=== PATIENT | female | born 1955 | race Caucasian/White ===

== ENCOUNTER → 2016-12-06 | Outpatient (CLI) | payer OTHER | LOC: MC.RAD 08:20 | DX: Z12.31 Encounter for screening mammogram for malignant neoplasm of breast (principal) ==

== ENCOUNTER → 2018-02-15 | Outpatient (CLI) | payer OTHER | LOC: MC.RAD 12-29 11:40 | DX: Z12.31 Encounter for screening mammogram for malignant neoplasm of breast (principal) ==

== ENCOUNTER → 2019-02-20 | Outpatient (CLI) | payer OTHER | LOC: MC.RAD 16:27 | DX: Z12.31 Encounter for screening mammogram for malignant neoplasm of breast (principal) ==

== ENCOUNTER → 2020-02-25 | Outpatient (CLI) | payer BC | LOC: MC.RAD 08:45 | DX: Z12.31 Encounter for screening mammogram for malignant neoplasm of breast (principal) ==

== ENCOUNTER → 2021-02-25 | Outpatient (CLI) | payer MEDICARE, OTHER | LOC: MC.RAD 07:51 | DX: Z12.31 Encounter for screening mammogram for malignant neoplasm of breast (principal) ==

== ENCOUNTER → 2021-04-27 | Outpatient (CLI) | payer MEDICARE, OTHER ==
[~2021-04-27] VITALS: Ht 160 cm; Wt 67.7 kg
[~2021-04-27] MED LIST: CITRACAL-D3 ER1 EACH PO; SYNTHROID0.05 MG/TA PO; SYNTHROID0.088 MG/T PO; VITAMIN D31000 I1 PO; ZOCOR 10MG10 MG PO
[2021-04-27 15:21] VITALS: BP 120/82; PULSE 94; TEMP 98.2
== END ==
LOC: EUO 14:50
DX: M81.0 Age-related osteoporosis without current pathological fracture (principal)
CPT/HCPCS: J0897

== ENCOUNTER 2021-11-05 14:54 | Outpatient (CLI) | payer MEDICARE, OTHER ==
[~2021-11-05] VITALS: Ht 160 cm; Wt 66.0 kg
[2021-11-05 15:30] VITALS: BP 137/84; PULSE 84; TEMP 98.2
== END 2021-11-05 17:05 | disposition home or self-care (01) ==
LOC: EUO 14:54
DX: M81.0 Age-related osteoporosis without current pathological fracture (principal)
CPT/HCPCS: J0897

== ENCOUNTER 2022-05-27 13:50 | Outpatient (CLI) | payer MEDICARE, OTHER ==
[~2022-05-27] VITALS: Ht 160 cm; Wt 66.6 kg
[2022-05-27 14:09] VITALS: BP 135/83; PULSE 95; TEMP 98.1
[2022-05-27] MEDS ORDERED: ZYRTEC 10MG10 MG PO (14:12)
== END 2022-05-27 14:35 ==
LOC: EUO 13:50
DX: M81.0 Age-related osteoporosis without current pathological fracture (principal)
CPT/HCPCS: J0897

== ENCOUNTER 2023-06-07 14:49 | Outpatient (CLI) | payer MEDICARE, OTHER ==
[~2023-06-07] VITALS: Ht 160 cm; Wt 66.5 kg
[~2023-06-07 14:49] MED LIST changes: +VANTIN 200200 MG/TAB PO; +ZOFRAN ODT4 MG PO; +ZYRTEC 10MG10 MG PO
[2023-06-07 14:59] VITALS: BP 142/90; PULSE 88; TEMP 98.4
[2023-06-07] MEDS ORDERED: Denosumab 60 MG/ML SYRINGE SQ ONE (15:00)
--- NOTE | 2023-06-07 15:05 | NUR ---
pt tolerated injection well. vs remained within normal limits. [facility]. pt free from acute concerns and complaints.
== END 2023-06-07 15:05 | disposition home or self-care (01) ==
LOC: EUO 14:49
DX: M81.0 Age-related osteoporosis without current pathological fracture (principal)
CPT/HCPCS: J0897